=== PATIENT | female | born 1940 | race African-American/Black ===

== ENCOUNTER 2021-07-01 11:01 | Emergency (ER) | payer OTHER ==
[~2021-07-01] VITALS: Ht 162.6 cm; Wt 75.3 kg
--- NOTE | ~2021-07-01 | EMS ---
[address] [address] EMS Patient Care Report Name: MARIELLA GALVEZ Room #: REG LORI Lopez#: [id number] Admission: 07/01/21 Attend Phys: Discharge: Date of : 44 Report #: [id number] THIS REPORT FOR: //name// Report Transmitted: 07/01/2021 12:21 EMS Care Summary [place], [place]/[facility] Incident [id number] @ 07/01/2021 10:15 Incident Location [address] Patient MARIELLA GALVEZ Female, 81 Years 1940 Patient Address [address] [place] [id number] Patient History Hypertension (HTN),Cardiac Condition - Other,Cardiac - Stent, Chief Complaint dizziness Disposition Transported No Lights/[place] Reason Unconscious/Fainting Transported To [facility] Narrative pt found lying in bed, a&o. pt c/o dizziness since she awoke at 0530 to go to bathroom. she went back to bed and when she told her daughter about it this morning, the daughter called 911. pt states the dizziness has not changed in severity. she denies any other symptoms. pt assist to cot, VS, tx as listed in flow chart, transport to [facility]. a couple minutes out from destination, rhythm change to atrial tach, 12 lead shows dextrocardia, pt not aware of hx. [address] [address] EMS Patient Care Report Name: MARIELLA GALVEZ Room #: REG [facility]..#: [id number] Admission: 07/01/21 Attend Phys: Discharge: Date of : 44 Report #: [id number] Initial Vitals @10:34P: 80,R: 18,BP: 180/90,Pain: 0/10,GCS: 15,Glucose: 132,SpO2: 96,Revised Trauma: 12,CA Suspected: false @10:50P: 116,R: 18,BP: 180/86,SpO2: 96, Assessments @10:29MENTAL:No Abnormalities,SKIN:No Abnormalities,HEENT:Head/Face: No Abnormalities,LUNG SOUNDS:ABDOMEN:PELVIS//GI:EXTREMITIES:PULSE:Radial: 2+ Normal,NEURO:Other, Impression Dizziness Procedures @10:29 ALS Assessment Response: Unchanged @10:30 Stretcher Response: Unchanged @10:35 3-Lead ECG Response: UnchangedSucceeded @10:41 IV Therapy - Saline Lock 10cc (20 ga) Site: Hand-Right Response: UnchangedSucceeded @10:50 12-Lead ECG Response: Unchanged Timeline 10:14,Call Received 10:14,Dispatch Notified 10:15,Dispatched 10:17,En Route 10:26,On Scene 10:28,At Patient 10:29,ALS Assessment,Response: Unchanged 10:30,Stretcher,Response: Unchanged 10:34,BP: 180/90 M,PULSE: 80,RR: 18 R,SPO2: 96 Ox,ETCO2: ,B,PAIN: 0,GCS: 15, 10:35,3-Lead ECG,Response: UnchangedSucceeded, 10:41,IV Therapy - Saline Lock 10cc 20 ga Site: Hand-Right,Response: UnchangedSucceeded, 10:41,Depart Scene 10:50,BP: 180/86 M,PULSE: 116,RR: 18 R,SPO2: 96 Ox,ETCO2: ,BG: ,PAIN: ,GCS: , 10:50,12-Lead ECG,Response: Unchanged 10:53,At Destination 11:24,Call Closed Disclaimer v1.1 Copyright 2020 [employer] This EMS Care Summary contains data elements from the applicable legal record (which may be displayed differently). It is designed to provide pertinent [facility] [address] [place] [address] EMS Patient Care Report Name: MARIELLA GALVEZ Room #: REG LORI Lopez#: [id number] Admission: 07/01/21 Attend Phys: Discharge: Date of : 44 Report #: [id number] information for the following purposes: continuity of care, clinical quality, and state data reporting. The complete legal record is available to ED staff and administrators of the receiving hospital in [email or web address]'s Patient Tracker. All data is provided "as is."
[2021-07-01 11:29] LABS: ABSOLUTE NEUTROPHILS 6.5 thou/uL (1.4-8.2); BASOPHILS 1.3 % (0.0-2.0); EOSINOPHILS 1.6 % (0.0-3.0); HEMATOCRIT 39.4 % (37.0-47.0); HEMOGLOBIN 12.5 gm/dL (12.0-15.0); LYMPHOCYTES 17.9 % (24.0-44.0); MCH 26.5 pg (26.0-34.0); MCHC 31.8 g/dL (28.0-37.0); MCV 83.3 fL (80.0-100.0); MONOCYTES 7.1 % (1.0-8.0); PLATELET COUNT 322 thou/uL (150-400); POLYS 72.1 % (36.0-66.0); RBC 4.73 mil/uL (4.20-5.00); RDW 15.3 % (10.5-14.5)
[2021-07-01 11:37] LABS: CALCIUM 9.2 mg/dL (8.5-10.1); CREATININE 1.1 mg/dL (0.6-1.0); POTASSIUM 3.8 mmol/L (3.5-5.1)
[2021-07-01 11:47] LABS: ALBUMIN 3.3 g/dL (3.4-5.0); TOTAL BILIRUBIN 0.3 mg/dL (0.2-1.0); TOTAL PROTEIN 7.3 g/dL (6.4-8.2)
[2021-07-01 12:23] LABS: URINE BILIRUBIN NEGATIVE (Negative); URINE BLOOD NEGATIVE (Negative); URINE CLARITY CLEAR; URINE COLOR YELLOW; URINE GLUCOSE-RANDOM* NEGATIVE (Negative); URINE KETONES NEGATIVE (Negative); URINE LEUKOCYTES-REFLEX TRACE (Negative); URINE NITRITE-REFLEX NEGATIVE (Negative); URINE PROTEIN (DIPSTICK) NEGATIVE (Negative); URINE SPECIFIC GRAVITY 1.015 (1.005-1.035); URINE UROBILINOGEN 0.2 E.U./dl (0.2-1.0)
[2021-07-01] MEDS ORDERED: MECLIZINE HCL25 M1 PO (15:13)
[2021-07-01 15:14] VITALS: BP 170/85
--- NOTE | 2021-07-02 07:27 | EKG ---
[place] [address] [address] [place] [address] ELECTROCARDIOGRAM REPORT Name: MARIELLA GALVEZ [id number] Admission: 07/01/21 Attend Phys: Discharge: 07/01/21 Date of : 44 Report #: [id number] [facility] ED Test Date: 2021-07-01 Test Time: 11:05:59 Pat Name: MARIELLA GALVEZ Department: Room: Gender: F [employer]: LOVELY : 1940 Requested By: Renny Gould Order Number: [id number] MD: Giovanni Maguire Measurements Intervals [place] Rate: 83 P: 93 VT: 180 QRS: 166 QRSD: 133 T: QT: 418 QTc: 492 Interpretive Statements Atrial-sensed ventricular-paced rhythm No further analysis attempted due to paced rhythm No previous ECG available for comparison Electronically Signed On 07-02-2021 7:27:36 CDT by Giovanni Maguire [email or web address] <ELECTRONICALLY SIGNED> By: Giovanni Maguire MD, [facility] 07/02/21 0727 1105 [id number] Giovanni Maguire MD, FACC /EPI
== END 2021-07-01 15:15 | disposition home or self-care (01) ==
LOC: ER 11:01
PROVIDERS: Emergency Medicine
DX: H81.13 Benign paroxysmal vertigo, bilateral (principal); I10 Essential (primary) hypertension